=== PATIENT | male | born 1970 | race Caucasian/White ===

== ENCOUNTER 2019-02-05 22:32 | Emergency (ER) | payer MEDICAID ==
[~2019-02-05] VITALS: Ht 180.3 cm; Wt 81.8 kg
[2019-02-05 22:52] VITALS: Ht 180.3 cm; Wt 81.8 kg
[2019-02-05] MEDS ORDERED: COREG 3.1253.125 MG (22:53)
[2019-02-05] MEDS ORDERED: SPIRIVA18 MCG (22:53)
[2019-02-05 23:10] LABS: BASOPHILS 0.1 % (0-2); EOSINOPHILS 2.8 % (0-7); HEMATOCRIT 44.9 % (42.0-54.0); HEMOGLOBIN 16.8 g/dL (13.5-17.5); IMMATURE GRANULOCYTES 0.4 % (0-5); LYMPHOCYTES 31.1 % (15-50); MCH 36.6 pg (26.0-34.0); MCHC 37.4 g/dL (31.0-37.0); MCV 97.8 fL (80.0-100.0); MEAN PLATELET VOLUME 8.8 fL (7.4-10.4); MONOCYTES 8.8 % (2-11); NEUTROPHILS 56.8 % (40-80); PLATELET COUNT 279 10x3/uL (130-400); RBC 4.59 10x6/uL (4.20-6.10); RDW 12.2 % (11.5-14.5); WBC 9.4 10x3/uL (4.8-10.8)
[2019-02-05 23:22] LABS: ALBUMIN 3.5 g/dL (3.4-5.0); ALKALINE PHOSPHATASE 68 U/L (46-116); ALT (SGPT) 16 U/L (10-68); BILIRUBIN - TOTAL 0.17 mg/dL (0.2-1.3); CALC OSMOLALITY 281 mosm/kg (275-300); CALCIUM 8.6 mg/dL (8.5-10.1); CARBON DIOXIDE 29.2 mmol/L (21.0-32.0); CHLORIDE - SERUM 105 mmol/L (98-107); GLUCOSE 97 mg/dL (74-106); MAGNESIUM - SERUM 2.2 mg/dL (1.8-2.4); POTASSIUM - SERUM 3.8 mmol/L (3.5-5.1); PROTEIN - SERUM 6.9 g/dL (6.4-8.2); SODIUM 141 mmol/L (136-145); UREA NITROGEN 15 mg/dL (7-18); eGFR NON AFRICAN AMERICAN 85 mL/min (90-120)
--- NOTE | 2019-02-05 23:26 | NUR ---
According to the suicide assessment and conferring with Dr. Pettit, the patient scores high for suicidal ideations and he will require 1:1 observation.
[2019-02-06 02:41] LABS: APPEARANCE CLEAR (CLEAR); BILIRUBIN NEGATIVE (NEGATIVE); COLOR YELLOW (YELLOW); GLUCOSE NEGATIVE (NEGATIVE); KETONE NEGATIVE (NEGATIVE); NITRITE NEGATIVE (NEGATIVE); PROTEIN NEGATIVE (NEGATIVE); SPECIFIC GRAVITY 1.015 (1.005-1.020); UROBILINOGEN NORMAL (NORMAL)
[2019-02-06 02:47] LABS: UDS - AMPHET NEGATIVE QUAL (NEGATIVE); UDS - BARB NEGATIVE QUAL (NEGATIVE); UDS - BENZO NEGATIVE QUAL (NEGATIVE); UDS - COCAINE POSITIVE QUAL (NEGATIVE); UDS - OPIATE NEGATIVE QUAL (NEGATIVE); UDS - PCP NEGATIVE QUAL (NEGATIVE); UDS - THC NEGATIVE QUAL (NEGATIVE)
[2019-02-06 06:02] VITALS: BP 125/78
== END 2019-02-06 06:03 ==
LOC: D.ER 22:32
PROVIDERS: Family Medicine
DX: R45.851 Suicidal ideations (principal)